=== PATIENT | female | born 1990 | race Caucasian/White ===

== ENCOUNTER → 2023-05-09 | Outpatient (CLI) | payer BC ==
[~2023-05-09] MED LIST: METPRE4DP PO; ONDA4ODT MM; OXYACE7.5T PO; PROM25 PO; ROBAFEN AC ORA473 ML PO; TOVIAZ 8 MG; Verotin-Gr Cap1 EACH PO; Zithromax250 MG PO
== END ==
LOC: PLD 08:50 → LAB SHORT 08:50
DX: D48.5 Neoplasm of uncertain behavior of skin (principal)
CPT/HCPCS: 88305

== ENCOUNTER 2024-04-10 10:05 | Day surgery (SDC) | payer BC ==
[~2024-04-10] VITALS: Ht 165.1 cm; Wt 64.6 kg
[~2024-04-10 10:05] MED LIST changes: +FLONASE ALLERG9.9 M2; +Lactated Ringer's 1,000 ML IV ONE; +METF500 PO; +Phentermine HCl15 MG PO
[2024-04-10] MEDS ORDERED: Lactated Ringer's 1,000 ML IV ONE ×2 (11:40→13:15)
[2024-04-10] MEDS ORDERED: CeFAZolin Sodium 2,000 MG VIAL ONE (11:55)
[2024-04-10] MEDS ORDERED: NS 50 ML IV ONE (11:56)
[2024-04-10] MEDS ORDERED: Ropivacaine 0.5% HCL/PF 5 MG/ML 30ML Vial ONE (12:21)
[2024-04-10] MEDS ORDERED: Lidocaine HCl 2% 10 ML SDA ONE ×2 (12:21→12:23)
[2024-04-10] MEDS ORDERED: propofoL 20 ML IV ONE (12:45)
[2024-04-10] MEDS ORDERED: FentaNYL Citrate 50 MCG/ML 2 ML Injection ONE (12:45)
[2024-04-10] MEDS ORDERED: Midazolam HCl 1MG / ML 2ML Vial ONE (12:47)
[2024-04-10] MEDS ORDERED: Ondansetron HCl 2 MG / ML 2ML Vial ONE (12:58)
[2024-04-10] MEDS ORDERED: Dexamethasone Sod Phos 10 MG/ML 1ML VIAL ONE (12:58)
[2024-04-10] MEDS ORDERED: Metoclopramide HCl 5MG / ML 2ML Vial ONE (12:58)
[2024-04-10] MEDS ORDERED: EPINEPhrine HCl 1 MG/ML 1ML Amp XX ONE (13:16)
[2024-04-10 15:29] VITALS: BP 115/72
== END 2024-04-10 14:25 | disposition home or self-care (01) ==
LOC: ORSCSDS 10:05
PROVIDERS: Podiatrist Foot & Ankle Surgery
PROC: 0QBN0ZZ Excision of Right Metatarsal, Open Approach (ICD-10-PCS; principal; 2024-04-10 11:50)
PROC: 0QSN04Z Reposition Right Metatarsal with Internal Fixation Device, Open Approach (ICD-10-PCS; principal; 2024-04-10 11:50)
DX: M20.5X1 Other deformities of toe(s) (acquired), right foot (principal); M79.671 Pain in right foot; M72.2 Plantar fascial fibromatosis; Z79.84 Long term (current) use of oral hypoglycemic drugs; Z79.899 Other long term (current) drug therapy
CPT/HCPCS: J0171; J0690; J1100; J2001; J2250; J2405; J2704; J2765; J2795; J3010; J7120

== ENCOUNTER 2024-12-11 14:52 | Inpatient (IN) | payer BC ==
[~2024-12-11] VITALS: Ht 165.1 cm; Wt 64.6 kg
[~2024-12-11 14:52] MED LIST changes: -Lactated Ringer's 1,000 ML IV ONE
[2024-12-11 15:08] VITALS: BP 114/76
[2024-12-11] MEDS ORDERED: Ondansetron HCl 2 MG / ML 2ML Vial IV PRN (15:10)
[2024-12-11] MEDS ORDERED: Guaifenesin/Dextromethorphan Syrup 5 ML UDC PO PRN (15:10)
[2024-12-11] MEDS ORDERED: Lactated Ringer's 1,000 ML IV SCH ×2 (15:10→16:35)
[2024-12-11] MEDS ORDERED: Acetaminophen 325 MG TABLET PO PRN (15:10)
[2024-12-11] MEDS ORDERED: ALBU90OI INH (15:14)
[2024-12-11 15:49] LABS: Hematocrit 38.9 % (33.0-51.0); Hemoglobin 13.7 g/dL (11.5-16.0); Mean Corpuscular HGB 30.6 pg (26.0-34.0); Mean Corpuscular HGB Conc 35.2 g/dL (31.5-36.5); Mean Corpuscular Volume 87 fL (80-100); Mean Platelet Volume 8.8 fL (9.1-12.4); Platelet Count 270 K/mm3 (150-400); RDW Coefficient Variation 11.7 % (11.7-14.2); RDW Standard Deviation 37.3 fL (35.1-46.3); Red Blood Cell Count 4.47 M/mm3 (3.80-5.20); White Blood Cell Count 6.25 K/mm3 (4.00-11.30)
[2024-12-11] MEDS ORDERED: CefTRIAXone Sodium 1,000 MG in NS 100 ML IV SCH (16:00)
[2024-12-11] MEDS ORDERED: Azithromycin 500 MG in NS 250 ML IV SCH (16:00)
[2024-12-11] MEDS ORDERED: NS 250 ML IV SCH (16:10)
[2024-12-11 16:14] LABS: BAND PERCENT MAN 14 % (0-8); BASOPHILS PERCENT MAN 0 % (0-2); EOSINOPHILS PERCENT MAN 0 % (0-6); LYMPHOCYTES ABSOLUTE MAN 0.25 K/mm3 (0.84-5.20); LYMPHOCYTES PERCENT MAN 4 % (21-46); MONOCYTES ABSOLUTE MAN 0.18 K/mm3 (0.16-1.47); MONOCYTES PERCENT MAN 3 % (4-13); NEUTROPHILS ABSOLUTE MAN 5.81 K/mm3 (1.96-9.15); SEG NEUTROPHILS PERCENT MAN 79 % (41-73); TOTAL CELLS COUNTED 100
[2024-12-11 16:16] LABS: Albumin, Blood 3.1 g/dL (3.4-5.0); Albumin/Globulin Ratio 0.8 (0.8-1.8); Bilirubin, Total 0.7 mg/dL (0.1-1.0); Bun/Creatinine Ratio 18.1 (12.0-20.0); Creatinine, Blood 0.66 mg/dL (0.40-1.00); Potassium, Blood 3.8 mmol/L (3.5-5.5); Total Protein, Blood 7.1 g/dL (6.4-8.2)
[2024-12-11] MEDS ORDERED: Albuterol 2.5 MG/3 ML VIAL INH PRN (17:45)
[2024-12-11 17:49] LABS: Adenovirus Not Detected (NOT DETECT); Bordetella pertussis Not Detected (NOT DETECT); Chlamydophila pneumoniae Not Detected (NOT DETECT); Coronavirus 229E Not Detected (NOT DETECT); Coronavirus HKU1 Not Detected (NOT DETECT); Coronavirus NL63 Not Detected (NOT DETECT); Coronavirus OC43 Not Detected (NOT DETECT); Human Metapneumovirus Not Detected (NOT DETECT); Human Rhinovirus/Enterovirus Not Detected (NOT DETECT); Influenza A/2009-H1 Not Detected (NOT DETECT); Influenza A/H1 Not Detected (NOT DETECT); Influenza A/H3 Not Detected (NOT DETECT); Influenza B Not Detected (NOT DETECT); Mycoplasma pneumoniae Detected (NOT DETECT); Parainfluenza Virus 1 Not Detected (NOT DETECT); Parainfluenza Virus 2 Not Detected (NOT DETECT); Parainfluenza Virus 3 Not Detected (NOT DETECT); Parainfluenza Virus 4 Not Detected (NOT DETECT); Respiratory Syncytial Virus Not Detected (NOT DETECT); SARS-Cov-2 (COVID-19), BioFire Not Detected (NOT DETECT)
--- NOTE | 2024-12-11 18:40 | NUR ---
PT DIRECT ADMIT TODAY FROM [facility] FOR [facility]. PT HAD TEMP OF 101.2 ON ARRIVAL HERE, ST IN 120-130 ON TELE, FREQUENT COUGH. RESPIRATORY PANEL POSITIVE FOR MYCOPLASMA PNEUMONIAE, NEGATIVE FOR ALL ELSE. AWAITING SPUTUM SAMPLE FOR CULTURE, PT STATES COUGH HAS NOT BEEN PRODUCTIVE. LACTIC ACID 2.2, MD AWARE 1L BOLUS OF LR GIVEN AND CONTINUOUS LR INFUSING. IV ABX HAVE BEEN GIVEN ORDERED. PT C/O NAUSEA AND FEELING UNWELL, TYLENOL AND ZOFRAN GIVEN ORDERED. PT A&OX4, PLEASANT AND COOPERATIVE WITH CARES, SPOUSE AT BEDSIDE.
[2024-12-11 19:38] VITALS: BP 104/63
[2024-12-11 19:39] VITALS: BP 104/63
[2024-12-11] MEDS ORDERED: NS 250 ML IV PRN (20:45)
[2024-12-11] MEDS ORDERED: Lactobacil 2-S.Thermo-Bifido 1 1 Cap PO SCH (21:00)
[2024-12-11] MEDS ORDERED: DEXTROMETHORPHAN/BENZOCAINE 1 EACH LOZENGE MT PRN (23:45)
[2024-12-11] MEDS ORDERED: Ibuprofen 400 MG Tab PO PRN (23:50)
[2024-12-12] VITALS: BP 101/69
[2024-12-12] MEDS ORDERED: Ipratropium/Albuterol SulF 2.5-0.5MG/3 ML Amp INH SCH (00:25)
--- NOTE | 2024-12-12 04:27 | NUR ---
SHIFT SUMMARY PT ALERT ORIENTED X 4 AMBLATES AD RODRICK IN HER ROOM. REMAINS WITH A NONPRODUCTIVE COUGH AND CONGESTION. VSS ON RA SATTING ON 2%. C/O A CONTINUOUS COUGH MEDICATED WITH ROBITUSSIN WITH SOME RELIEF. C/O ACHINESS AND PAIN MEDICATED WITH TYLENOL AND IBUPROFEN WITH GOOD RELIEF. C/O NAUSEA MEDICATED WITH ZOFRAN WHICH SEEMED TO HELP. REMAINS ON ROCEPHIN QDAY AND ZITHROMAX QDAY. REMAINS ON LR AT 125. VSS ON RA SATTING AT 92%. REMAINS ON TELEMETRY AT SINUS TACH AT 120. RESTING IN BED AT THIS TIME WITH CALL LIGHT IN REACH
[2024-12-12 04:50] LABS: Hematocrit 32.1 % (33.0-51.0); Hemoglobin 11.2 g/dL (11.5-16.0); Mean Corpuscular HGB 30.3 pg (26.0-34.0); Mean Corpuscular HGB Conc 34.9 g/dL (31.5-36.5); Mean Corpuscular Volume 87 fL (80-100); Mean Platelet Volume 8.5 fL (9.1-12.4); Platelet Count 240 K/mm3 (150-400); RDW Coefficient Variation 11.7 % (11.7-14.2); RDW Standard Deviation 37.4 fL (35.1-46.3); White Blood Cell Count 3.58 K/mm3 (4.00-11.30)
[2024-12-12 04:54] VITALS: BP 101/68
[2024-12-12 05:19] LABS: Bun/Creatinine Ratio 12.8 (12.0-20.0); Calcium, Blood 8.2 mg/dL (8.5-10.1); Creatinine, Blood 0.63 mg/dL (0.40-1.00); Potassium, Blood 3.5 mmol/L (3.5-5.5)
[2024-12-12 06:06] LABS: BAND PERCENT MAN 29 % (0-8); BASOPHILS PERCENT MAN 0 % (0-2); EOSINOPHILS PERCENT MAN 0 % (0-6); LYMPHOCYTES ABSOLUTE MAN 0.39 K/mm3 (0.84-5.20); LYMPHOCYTES PERCENT MAN 11 % (21-46); MONOCYTES ABSOLUTE MAN 0.07 K/mm3 (0.16-1.47); MONOCYTES PERCENT MAN 2 % (4-13); NEUTROPHILS ABSOLUTE MAN 3.11 K/mm3 (1.96-9.15); SEG NEUTROPHILS PERCENT MAN 58 % (41-73); TOTAL CELLS COUNTED 100
[2024-12-12 07:28] VITALS: BP 113/79
[2024-12-12] MEDS ORDERED: Benzonatate 100 MG Cap PO PRN (08:10)
[2024-12-12] MEDS ORDERED: Enoxaparin 40 MG/0.4 ML SYR SC SCH (09:00)
[2024-12-12] MEDS ORDERED: Fluticasone 0.05% Nasal Spray SCH (09:00)
[2024-12-12 11:40] VITALS: BP 116/78
[2024-12-12] MEDS ORDERED: PredniSONE 20 MG Tab PO SCH (12:00)
[2024-12-12] MEDS ORDERED: Ketorolac Tromethamine 15mg Vial IV PRN (12:20)
[2024-12-12 15:17] VITALS: BP 117/72
[2024-12-12] MEDS ORDERED: DEXTROMETHORPHAN/BENZOCAINE 1 EACH LOZENGE MT PRN (16:35)
--- NOTE | 2024-12-12 17:20 | NUR ---
PT AOX2-3 DEPENDING ON HOW TIRED HE IS. PT IS ABLE TO MAKE NEEDS KNOWN. PT WAS ABLE TO GET UP A 1-2 PERSON TO BSC AND VOIDED FOR URINE EASIER. PT DOES HAVE PERWICK, BUT HAS TO BE INSTRUCTED HE CAN URINATE. NO INCREASED REDNESS TO L LEG. CALL LIGHT WITHIN REACH WILL CONTINUE TO MONITOR.
--- NOTE | 2024-12-12 17:34 | NUR ---
PT AOX4 AND COOPERATIVE OF CARE. PT STARTED SHIFT HAVING A LOT OF TROUBLE WITH COUGHING. DR MARS WAS NOTIFIED AND ALSO SPOKE WITH PT AND HER . MEDICATIONS HAVE BEEN ADDED TO EMAR. PT STATES SHE IS FEELING BETTER AND IS ALB TO TALK EASIER AT THIS TIME. CALL LIGHT IS IN REACH AND WILL CONTINUE TO MONITOR.
[2024-12-12] MEDS ORDERED: [UNRECOGNIZED DRUG - OTHER] PO PRN (17:40)
[2024-12-12 20:53] VITALS: BP 114/68
[2024-12-13 00:07] VITALS: BP 106/73
[2024-12-13 04:42] LABS: Hematocrit 27.6 % (33.0-51.0); Hemoglobin 9.7 g/dL (11.5-16.0); Mean Corpuscular HGB 30.6 pg (26.0-34.0); Mean Corpuscular HGB Conc 35.1 g/dL (31.5-36.5); Mean Corpuscular Volume 87 fL (80-100); Mean Platelet Volume 8.5 fL (9.1-12.4); Platelet Count 224 K/mm3 (150-400); RDW Coefficient Variation 11.9 % (11.7-14.2); RDW Standard Deviation 38.3 fL (35.1-46.3); Red Blood Cell Count 3.17 M/mm3 (3.80-5.20); White Blood Cell Count 2.57 K/mm3 (4.00-11.30)
[2024-12-13 04:51] VITALS: BP 109/76
--- NOTE | 2024-12-13 04:54 | NUR ---
SHIFT SUMMARY PT ALERT ORIENTED X 4 ABLE TO VERBALIZE NEEDS GETS UP TO BATHROOM AD RODRICK. HER O2 SAT AT THE BEGINNING OF THE SHIFT KEPT DROPPING DOWN IN THE LOW 80S. RT CAME AND PUT HER ON A CONTINUOUS PULSE OX AND I PUT HER ON 2L VIA NC. SHES NOW SATTING AT 95% ON 2L. SHE HAS PAIN TO THE RIB AREA DUE TO HER CONTINUED COUGH. SHES GIVEN ROBITUSSIN WITH CODEINE WHICH SEEMS TO HELP TO CONTROL HER COUGH. SHES GIVEN TORADOL AND TYLENOL FOR PAIN CONTROL. REMAINS ON LR AT 125. VSS ON 2L VIA NC. SHE C/O NAUSEA MEDICATED WITH ZOFRAN WHICH IS HELPING TO CONTROL THE N/V. SHE STATED THAT SHES STARTING TO FEEL ALOT BETTER. HER PCR TEST WAS POSITIVE FOR MYCOPLASMA PNEUMONIA. RESTING IN BED AT THIS TIME WITH CALL LIGHT IN REACH
[2024-12-13 04:58] LABS: Bun/Creatinine Ratio 13.7 (12.0-20.0); Calcium, Blood 8.4 mg/dL (8.5-10.1); Creatinine, Blood 0.51 mg/dL (0.40-1.00); Potassium, Blood 3.7 mmol/L (3.5-5.5)
[2024-12-13 05:29] LABS: BAND PERCENT MAN 22 % (0-8); BASOPHILS PERCENT MAN 0 % (0-2); EOSINOPHILS PERCENT MAN 0 % (0-6); LYMPHOCYTES PERCENT MAN 12 % (21-46); MONOCYTES PERCENT MAN 8 % (4-13); MYELOCYTE ABSOLUTE MAN 0.02 K/mm3 (0.00-0.00); MYELOCYTE PERCENT MAN 1 % (0-0); NEUTROPHILS ABSOLUTE MAN 2.03 K/mm3 (1.96-9.15); SEG NEUTROPHILS PERCENT MAN 57 % (41-73); TOTAL CELLS COUNTED 100
[2024-12-13 07:22] VITALS: BP 116/86
[2024-12-13 11:53] VITALS: BP 104/75
[2024-12-13] MEDS ORDERED: Loperamide HCl 2 MG Cap PO PRN (14:30)
[2024-12-13] MEDS ORDERED: Zinc Oxide Ointment 30 GM TOP PRN (14:30)
[2024-12-13 15:03] LABS: BASOPHILS ABSOLUTE AUTO 0.01 K/mm3 (0.00-0.23); BASOPHILS PERCENT AUTO 0 % (0-2); EOSINOPHILS PERCENT AUTO 0 % (0-6); Hematocrit 32.8 % (33.0-51.0); Hemoglobin 11.1 g/dL (11.5-16.0); IMMATURE GRAN ABSOLUTE AUTO 0.13 K/mm3 (0.00-0.10); IMMATURE GRAN PERCENT AUTO 4 % (0-1); LYMPHOCYTES ABSOLUTE AUTO 0.52 K/mm3 (0.84-5.20); LYMPHOCYTES PERCENT AUTO 15 % (21-46); MONOCYTES ABSOLUTE AUTO 0.14 K/mm3 (0.16-1.47); MONOCYTES PERCENT AUTO 4 % (4-13); Mean Corpuscular HGB 30.1 pg (26.0-34.0); Mean Corpuscular HGB Conc 33.8 g/dL (31.5-36.5); Mean Corpuscular Volume 89 fL (80-100); Mean Platelet Volume 8.6 fL (9.1-12.4); NEUTROPHILS PERCENT AUTO 77 % (41-73); Platelet Count 322 K/mm3 (150-400); RDW Standard Deviation 39.1 fL (35.1-46.3); Red Blood Cell Count 3.69 M/mm3 (3.80-5.20)
[2024-12-13 15:45] VITALS: BP 134/92
--- NOTE | 2024-12-13 16:32 | NUR ---
PT HAS BEEN AOX4 AND COOPERATIVE OF CARE. PT IS INDEPENDENT IN ROOM AND IS ABLE TO MAKE NEEDS KNOWN. PT HAS BEEN TREATED FOR COUGH AND PAIN TODAY PER EMAR. PT ALSO REPORTED DIARHEA AND DR VILLASEÑOR WAS NOTIFIED AND ADDED MEDICATION TO EMAR. PT HAS CALL LIGHT WITHIN REACH WILL CONTINUE TO MONITOR.
[2024-12-13 20:54] VITALS: BP 114/77
[2024-12-14] VITALS (7 sets, daily range): BP systolic 98–127; BP diastolic 71–81
--- NOTE | 2024-12-14 04:21 | NUR ---
SHIFT SUMMARY PT ALERT ORIENTED X 4 ABLE TO VERBALIZE NEEDS GETS UP TO THE BATHROOM AD RODRICK. REMAINS WITH A NONPRODUCTIVE HACKING COUGH MEDICATED WITH ROBITUSSIN WITH CODEINE AND TESSALON PEARLS. ALSO C/O CHEST PAIN R/T COUGH MEDICATED WITH TORADOL AND TYLENOL WITH GOOD RELIEF. REMAINS ON 2L VIA NC SATTING AT 95%. REMAINS ON LR AT 125. CONTINUES ON A CONTINUOUS PULSE OX. C/O LOOSE STOOLS AND NAUSEA AND MEDICATED WITH ZOFRAN AND IMODIUM WITH SOME RELIEF. REMAINS ON LR AT 125. SHES BEEN SLEEPING OFF AND ON THIS SHIFT. SHES IN BED RESTING AT THIS TIME WITH CALL LIGHT IN REACH
[2024-12-14 07:09] LABS: BASOPHILS ABSOLUTE AUTO 0.04 K/mm3 (0.00-0.23); BASOPHILS PERCENT AUTO 1 % (0-2); EOSINOPHILS ABSOLUTE AUTO 0.03 K/mm3 (0.00-0.68); EOSINOPHILS PERCENT AUTO 1 % (0-6); Hematocrit 27.6 % (33.0-51.0); Hemoglobin 9.4 g/dL (11.5-16.0); IMMATURE GRAN ABSOLUTE AUTO 0.26 K/mm3 (0.00-0.10); IMMATURE GRAN PERCENT AUTO 4 % (0-1); LYMPHOCYTES ABSOLUTE AUTO 1.41 K/mm3 (0.84-5.20); LYMPHOCYTES PERCENT AUTO 22 % (21-46); MONOCYTES ABSOLUTE AUTO 0.69 K/mm3 (0.16-1.47); MONOCYTES PERCENT AUTO 11 % (4-13); Mean Corpuscular HGB 30.6 pg (26.0-34.0); Mean Corpuscular HGB Conc 34.1 g/dL (31.5-36.5); Mean Corpuscular Volume 90 fL (80-100); Mean Platelet Volume 8.4 fL (9.1-12.4); NEUTROPHILS ABSOLUTE AUTO 3.88 K/mm3 (1.96-9.15); NEUTROPHILS PERCENT AUTO 62 % (41-73); Platelet Count 312 K/mm3 (150-400); RDW Coefficient Variation 12.2 % (11.7-14.2); RDW Standard Deviation 40.6 fL (35.1-46.3); Red Blood Cell Count 3.07 M/mm3 (3.80-5.20); White Blood Cell Count 6.31 K/mm3 (4.00-11.30)
[2024-12-14 07:26] LABS: Bun/Creatinine Ratio 18.2 (12.0-20.0); Calcium, Blood 8.6 mg/dL (8.5-10.1); Creatinine, Blood 0.55 mg/dL (0.40-1.00); Potassium, Blood 3.4 mmol/L (3.5-5.5)
[2024-12-14] MEDS ORDERED: Potassium Chloride 20 MEQ TabCR PO ONE (11:00)
--- NOTE | 2024-12-14 16:55 | NUR ---
NO ACUTE CHANGES PT AOX4 AND COOPERATIVE OF HANNA. PT IS INDEPENDENT TO RESTROOM. PT CONTINUES TO NEED 2L OF O2 AND IS MAINTAINING AROUND 91%. PT HAS BEEN TREATED FOR RIB PAIN, LAWRENCE AND COUGH PER EMAR. NO DISTRESS NOTED WILL CONTINUE TO MONITOR.
[2024-12-15 04:37] VITALS: BP 128/82
--- NOTE | 2024-12-15 04:56 | NUR ---
SHIFT SUMMARY PATIENT IS ALERT AND ORIENTED. PATIENT HAS HAD NO ACUTE EVENTS THIS SHIFT. VITAL SIGNS REVIEWED. PATIENT HAD PERCUSSION VEST THERAPY EARLY IN THIS SHIFT AND HAS HAD PRODUCTIVE COUGH SINCE. PATIENT HAS COMPLAINED OF LOOSE STOOLS THIS SHIFT AND MEDICATED PER EMAR. PATIENT HAS COMPLAINED OF RIB PAIN DUE TO COUGHING AND MEDICATED PER EMAR. PATIENT HAS BEEN FLUCUATING BETWEEN 90-93 THIS SHIFT ON 2L WITH OCCASIONAL DESATS. HAD CONVERSATION WITH PATIENT AND BUMPED UP OXYGEN TO 2.5L WITH MILD SUCCESS. PATIENTS HANDS WERE COLD AND COULD NOT GET A GREAT READING. PATIENT HAS BEEN IND WITH ADLS THIS SHIFT. BED IN LOCKED AND LOWEST POSITION. LR INFUSING ALL SHIFT. CALL LIGHT IN PLACE.
[2024-12-15 05:08] LABS: Hematocrit 25.9 % (33.0-51.0); Hemoglobin 8.8 g/dL (11.5-16.0); Mean Corpuscular HGB 30.6 pg (26.0-34.0); Mean Corpuscular Volume 90 fL (80-100); Mean Platelet Volume 8.4 fL (9.1-12.4); NRBC ABSOLUTE 0.03 K/mm3 (0.00-0.02); NRBC Auto 0.4 /100 WBC (0.0-0.2); Platelet Count 325 K/mm3 (150-400); RDW Coefficient Variation 12.2 % (11.7-14.2); RDW Standard Deviation 40.2 fL (35.1-46.3); Red Blood Cell Count 2.88 M/mm3 (3.80-5.20)
[2024-12-15 05:37] LABS: BASOPHILS PERCENT MAN 0 % (0-2); EOSINOPHILS PERCENT MAN 0 % (0-6); LYMPHOCYTES % ATYPICAL MANUAL 1 % (0-0); LYMPHOCYTES ABSOLUTE MAN 2.03 K/mm3 (0.84-5.20); LYMPHOCYTES PERCENT MAN 28 % (21-46); METAMYELOCYTE ABSOLUTE MAN 0.21 K/mm3 (0.00-0.00); METAMYELOCYTE PERCENT MAN 3 % (0-0); MONOCYTES ABSOLUTE MAN 0.56 K/mm3 (0.16-1.47); MONOCYTES PERCENT MAN 8 % (4-13); SEG NEUTROPHILS PERCENT MAN 60 % (41-73); TOTAL CELLS COUNTED 100
[2024-12-15 05:43] LABS: Calcium, Blood 8.4 mg/dL (8.5-10.1); Creatinine, Blood 0.56 mg/dL (0.40-1.00); Potassium, Blood 3.9 mmol/L (3.5-5.5)
[2024-12-15 07:11] VITALS: BP 122/94
[2024-12-15] MEDS ORDERED: LevoFLOXacin 750 MG/D5W 150ML 150 ML IV SCH (09:30)
[2024-12-15 09:48] LABS: IMMATURE RETIC FRACTION 20.7 % (2.3-16.0); RETIC HGB EQUIVALENT 32.9 pg (28.20-36.60); RETICULOCYTE ABSOLUTE 0.0187 M/mm3 (0.0200-0.1100); RETICULOCYTE COUNT PERCENT 0.59 % (0.50-2.50)
[2024-12-15 10:01] LABS: C-REACTIVE PROTEIN, EXT RANGE 7.7 mg/dL (0.000-0.300)
[2024-12-15 10:05] LABS: Albumin, Blood 2.8 g/dL (3.4-5.0); Albumin/Globulin Ratio 0.8 (0.8-1.8); Bilirubin, Direct 0.1 mg/dL (0.0-0.3); Bilirubin, Indirect 0.2 mg/dL (0.1-0.7); Bilirubin, Total 0.3 mg/dL (0.1-1.0); Globulin, Blood 3.4 g/dL (2.2-4.0); Percent Saturation 20.4 % (15.0-50.0); Total Protein, Blood 6.2 g/dL (6.4-8.2)
[2024-12-15 12:01] VITALS: BP 130/95
[2024-12-15] MEDS ORDERED: Simethicone 80 MG Chew PO PRN (13:05)
--- NOTE | 2024-12-15 13:17 | NUR ---
Patient is lying in bed and alert. She explains about the multiple antibiotics that have beed used to fight the infection with no success thus far. She expresses her worry. I provided therapeutic listening and prayer. Patient responded well and showed signs of boost in hope. I will continue to remain available to patient and family.
[2024-12-15] MEDS ORDERED: [UNRECOGNIZED DRUG - OTHER] PO PRN (14:00)
[2024-12-15 15:59] VITALS: BP 122/80
--- NOTE | 2024-12-15 18:44 | NUR ---
SHIFT SUMMARY: PT A&O X4. PLEASANT AND COOPERATIVE WITH CARE. PT REMAINED ON 2L T/O SHIFT MAINTAINING SATS >92%. CONT BIOX IN PLACE. TELE IN PLACE RUNNING SINUS RHYTHM. RESPIRATORY VEST USED X2 THIS SHIFT. DR. VILLASEÑOR WROTE HARD SCRIPT FOR NEW BOTTLE OF COUGH MEDICATION. BOTTLE SENT TO PHARMACY, LABELED, AND BACK IN IN PT LOCK BOX. CALL LIGHT IN REACH. BED IN LOWEST POSITION.
[2024-12-15 19:30] VITALS: BP 128/86
[2024-12-15 23:47] VITALS: BP 132/87
[2024-12-16 03:59] VITALS: BP 147/95
[2024-12-16 04:44] LABS: Hematocrit 27.3 % (33.0-51.0); Hemoglobin 9.3 g/dL (11.5-16.0); Mean Corpuscular HGB 30.7 pg (26.0-34.0); Mean Corpuscular HGB Conc 34.1 g/dL (31.5-36.5); Mean Corpuscular Volume 90 fL (80-100); Mean Platelet Volume 8.3 fL (9.1-12.4); NRBC ABSOLUTE 0.02 K/mm3 (0.00-0.02); NRBC Auto 0.2 /100 WBC (0.0-0.2); Platelet Count 400 K/mm3 (150-400); RDW Coefficient Variation 11.9 % (11.7-14.2); RDW Standard Deviation 38.9 fL (35.1-46.3); Red Blood Cell Count 3.03 M/mm3 (3.80-5.20); White Blood Cell Count 9.07 K/mm3 (4.00-11.30)
--- NOTE | 2024-12-16 04:59 | NUR ---
SHIFT SUMMARY PATIENT IS ALERT AND ORIENTED. PATIENT HAS HAD NO ACUTE EVENTS THIS SHIFT. VITAL SIGNS REVIEWED. PATIENT HAS BEEN ON 2L ALL SHIFT SATTING 94 OR HIGHER ALL SHIFT. PATIENT HAS HAD PERCUSSION VEST WITH GOOD RESULTS EARLIER IN SHIFT. PATIENT HAS HAD NO COMPLAINTS OF SOB, NAUSEA, PAIN OR VOMITTING. PATIENT COMPLAINED OF HEADACHE AND MEDICATED PER EMAR. LR INFUSING AT 125ML/HR. BED IN LOCKED AND LOWEST POSITION. CALL LIGHT IN PLACE.
[2024-12-16 05:03] LABS: Albumin, Blood 2.6 g/dL (3.4-5.0); Albumin/Globulin Ratio 0.7 (0.8-1.8); Bilirubin, Total 0.3 mg/dL (0.1-1.0); Bun/Creatinine Ratio 11.2 (12.0-20.0); Calcium, Blood 8.6 mg/dL (8.5-10.1); Creatinine, Blood 0.54 mg/dL (0.40-1.00); Globulin, Blood 3.6 g/dL (2.2-4.0); Potassium, Blood 3.7 mmol/L (3.5-5.5); Total Protein, Blood 6.2 g/dL (6.4-8.2)
[2024-12-16 05:11] LABS: BAND PERCENT MAN 3 % (0-8); BASOPHILS PERCENT MAN 0 % (0-2); EOSINOPHILS PERCENT MAN 0 % (0-6); LYMPHOCYTES ABSOLUTE MAN 1.36 K/mm3 (0.84-5.20); LYMPHOCYTES PERCENT MAN 15 % (21-46); METAMYELOCYTE ABSOLUTE MAN 0.45 K/mm3 (0.00-0.00); METAMYELOCYTE PERCENT MAN 5 % (0-0); MONOCYTES ABSOLUTE MAN 0.63 K/mm3 (0.16-1.47); MONOCYTES PERCENT MAN 7 % (4-13); MYELOCYTE ABSOLUTE MAN 0.36 K/mm3 (0.00-0.00); MYELOCYTE PERCENT MAN 4 % (0-0); NEUTROPHILS ABSOLUTE MAN 6.25 K/mm3 (1.96-9.15); SEG NEUTROPHILS PERCENT MAN 66 % (41-73); TOTAL CELLS COUNTED 100
[2024-12-16 08:08] VITALS: BP 132/83
[2024-12-16 16:27] VITALS: BP 126/84
--- NOTE | 2024-12-16 16:31 | NUR ---
SHIFT SUMMARY PT SATING INTHE 90S ON 2L O2 VIA NC T/O THE SHIFT. UNABLE TO PRODUCE A SPUTUM SAMPLE. RT MANAGING BREATHING TREATMENTS AND CHEST PERCUSSION THERAPY. PT SHOWERED TODAY. TOLERATED WELL. IV FLUIDS AND TELE DCED TODAY. NO OTHER ACUTE CHANGES IN ASSESSMENT AT THIS TIME. VS REVIEWED. CALL LIGHT IN REACH. PT DENIES OTHER NEEDS AT THIS TIME. SPOUCE AT BEDSIDE T/O SHIFT.
[2024-12-16 20:49] VITALS: BP 126/81
--- NOTE | 2024-12-17 04:53 | NUR ---
SHIFT SUMMARY PT ALERT ORIENTED X 4 ABLE TO VERBALIZE NEEDS GETS UP IN ROOM AD RODRICK. VSS ON 1L O2 VIA NC. SHES GETTING HHN TX AND PERCUSSION TXS FROM RT. HER COUGH HAS GOTTEN ALOT BETTER AND SHE ONLY REQUIRED COUGH MEDS X 1. SHE SLEPT OFF AND ON ALL NIGHT. REMAINS ON A CONTINUOUS PULSE OX AND SHES SATTING WELL ON 1L. REMAINS ON LEVAQUIN FOR BILATERAL PNEUMONA. RESTING IN BED AT THIS TIME WITH CALL LIGHT IN REACH
[2024-12-17 04:59] LABS: Hematocrit 27.6 % (33.0-51.0); Hemoglobin 9.3 g/dL (11.5-16.0); Mean Corpuscular HGB 29.9 pg (26.0-34.0); Mean Corpuscular HGB Conc 33.7 g/dL (31.5-36.5); Mean Corpuscular Volume 89 fL (80-100); Mean Platelet Volume 8.2 fL (9.1-12.4); NRBC ABSOLUTE 0.05 K/mm3 (0.00-0.02); NRBC Auto 0.4 /100 WBC (0.0-0.2); Platelet Count 461 K/mm3 (150-400); RDW Coefficient Variation 11.9 % (11.7-14.2); RDW Standard Deviation 37.8 fL (35.1-46.3); Red Blood Cell Count 3.11 M/mm3 (3.80-5.20); White Blood Cell Count 12.01 K/mm3 (4.00-11.30)
[2024-12-17 05:02] VITALS: BP 133/87
[2024-12-17 05:32] LABS: Bun/Creatinine Ratio 10.1 (12.0-20.0); Calcium, Blood 8.7 mg/dL (8.5-10.1); Creatinine, Blood 0.6 mg/dL (0.40-1.00); Potassium, Blood 3.6 mmol/L (3.5-5.5)
[2024-12-17 05:46] LABS: BAND PERCENT MAN 1 % (0-8); BASOPHILS PERCENT MAN 0 % (0-2); EOSINOPHILS ABSOLUTE MAN 0.24 K/mm3 (0.00-0.68); EOSINOPHILS PERCENT MAN 2 % (0-6); LYMPHOCYTES ABSOLUTE MAN 1.92 K/mm3 (0.84-5.20); LYMPHOCYTES PERCENT MAN 16 % (21-46); METAMYELOCYTE ABSOLUTE MAN 0.24 K/mm3 (0.00-0.00); METAMYELOCYTE PERCENT MAN 2 % (0-0); MONOCYTES ABSOLUTE MAN 0.72 K/mm3 (0.16-1.47); MONOCYTES PERCENT MAN 6 % (4-13); MYELOCYTE ABSOLUTE MAN 0.96 K/mm3 (0.00-0.00); MYELOCYTE PERCENT MAN 8 % (0-0); NEUTROPHILS ABSOLUTE MAN 7.92 K/mm3 (1.96-9.15); SEG NEUTROPHILS PERCENT MAN 65 % (41-73); TOTAL CELLS COUNTED 100
[2024-12-17 09:03] VITALS: BP 118/77
--- NOTE | 2024-12-17 09:26 | NUR ---
ASSUMED CARE OF PT. PT IS A/O, INDEPENDANT IN ROOM AND ABLE TO MAKE NEEDS KNOW. BREATHING IS INTACT AND BETTER TODAY PER PT. 0.5L NC AND O2 @95. O2 REMOVED AFTER PT RT THERAPY TREATMENT, CURRENTLY SATURATION IS IN THE LOW 90S AND MAIA WELL. CALL LIGHT WITHIN REACH.
[2024-12-17] MEDS ORDERED: BENZ100A PO (12:43)
[2024-12-17] MEDS ORDERED: CEPACOL THROAT1 EAC1 MM (12:44)
[2024-12-17] MEDS ORDERED: VISBIOME 112.51 EACH PO (12:46)
[2024-12-17] MEDS ORDERED: LEVO750 PO (12:47)
--- NOTE | 2024-12-17 16:17 | NUR ---
assumed care of pt a/o x4 very pleasent and makes needs known, respiratory status wnl pt on 0.5 l nc and lot well, rt performing compression therapy. home o2 eval in progress pt to be discharged. instructions given and meds faxed to pharmacy. iv removed by kaylynn schaffer and pt discharged
== END 2024-12-17 13:14 | disposition home or self-care (01) | DRG 871 ==
LOC: MEDS 14:52
PROVIDERS: Internal Medicine; ADMIT Family Medicine
DX: A41.9 Sepsis, unspecified organism (principal); J15.7 Pneumonia due to Mycoplasma pneumoniae; J96.01 Acute respiratory failure with hypoxia; E87.1 Hypo-osmolality and hyponatremia; R65.20 Severe sepsis without septic shock; D64.9 Anemia, unspecified; J45.909 Unspecified asthma, uncomplicated; Z79.51 Long term (current) use of inhaled steroids; Z79.899 Other long term (current) drug therapy; Z87.39 Personal history of other diseases of the musculoskeletal system and connective tissue; Z86.73 Personal history of transient ischemic attack (TIA), and cerebral infarction without residual deficits
CPT/HCPCS: 0202U; 36415; 71045; 71046; 80048; 80053; 80076; 82728; 83540; 83550; 83605; 83615; 84145; 85025; 85045; 85060; 86140; 86880; 87040; 94640; 94664; 94667; 94668; 94760; 94761; 94762; A9270; J0456; J0696; J1650; J1885; J1956; J2405; J7050; J7120; J7512